=== PATIENT | male | born 1940 | race Caucasian/White ===

== ENCOUNTER 2016-12-29 12:53 | Inpatient (IN) | payer OTHER ==
[~2016-12-29] VITALS: Ht 172.7 cm; Wt 75.6 kg
--- NOTE | ~2016-12-29 | P ---
[facility] [place] [address] PROCEDURE REPORT Name: VISHAL ALMANZAR Room #: 305-P [facility] IN ..#: [id number] Admission: 12/29/16 Attend Phys: Kimberlee Staton MD Discharge: 01/06/17 Date of : 36 Report #: [id number] THIS REPORT FOR: //name// CC: Caden Miranda BRIEF HISTORY: The patient is a 76-year-old male with a known sigmoid mass. He has a history of prostate cancer and ureter epithelial cancer. PREOPERATIVE DIAGNOSIS: Rectosigmoid sigmoid mass on CT. POSTOPERATIVE DIAGNOSES: 1. Rectal mass, endoscopically appears to be extrinsic to the rectum. 2. Moderate diverticulosis coli. MEDICATIONS: Deep sedation with propofol per anesthesia. SPECIMEN: Biopsies of rectal mass. ESTIMATED BLOOD LOSS: 3 mL. PROCEDURE: Colonoscopy to cecum with biopsy. FINDINGS: Prior to propofol sedation, procedure of colonoscopy discussed with the patient as well as potential risks and its complications. He indicates he understands and desires to proceed. DESCRIPTION OF PROCEDURE: With the patient in left lateral decubitus position, digital examination was completed and a rock hard mass was felt in the distal rectal vault. Subsequently, the [employer] video colonoscope was introduced into the rectum and advanced under direct vision. I was able to visualize the scope . Unfortunately, the prep was limited and there were large pools of liquidy stool material throughout the colon with particular matter. Because of the particular matter, we could not easily suction through the scope channel. However, I was able to pass the scope and worked it around the pools of liquid into the cecum which identified by the ileocecal valve and the appendiceal orifice. No other masses were seen in the cecum. There was not a significant collection of liquid stool in the cecum, although the mucosa was covered with liquidy stool. At that point, the scope was slowly withdrawn and careful circumferential views obtained. Within the limitations of prep, I could not see any other mass lesions or bleeding lesions. There was no blood seen during this examination. As we withdrew the scope, limited views were obtained. He was noted to have moderately severe diverticular disease without endoscopic evidence of diverticulitis. The scope was withdrawn in the rectum and with the tip of [facility] [address] [place] [address] PROCEDURE REPORT Name: VISHAL ALMANZAR Room #: 305-P [facility] IN [facility].#: [id number] Admission: 12/29/16 Attend Phys: Kimberlee Staton MD Discharge: 01/06/17 Date of : 36 Report #: [id number] the scope sitting just above the anal verge, I could see a mass effect involving about half the lumen of the rectum. It had an extrinsic configuration. It appeared to be covered with normal mucosa, but there was some friability in some of the mucosa. There may be some small ulcerations, but because of the copious of liquid stool, I could not see the entire surface of the mass lesion. Multiple biopsies were obtained. Scope was withdrawn. The patient tolerated the procedure well. DISPOSITION: The patient with recent rectosigmoid mass. There was evidence of an extrinsic compression of the rectum with mass effect. This is easily palpable on digital examination. We will follow up on biopsies obtained today. <ELECTRONICALLY SIGNED> By: Connor Briones MD 01/08/17 1104 1420 0105 Connor Briones MD /nt
--- NOTE | ~2016-12-29 | HC ---
[facility] [place] [address] CONSULTATION Name: VISHAL ALMANZAR Room #: 305-P [facility] IN ..#: [id number] Admission: 12/29/16 Attend Phys: Julián Miranda MD Discharge: Date of : 38 Report #: [id number] THIS REPORT FOR: //name// CC: Landon Miranda HISTORY OF PRESENT ILLNESS: The patient is a 76-year-old white male who was admitted with history of chronic pain, increased falls at home, and chronic lower extremity weakness. He notes pain involving the left lower extremity and the left lateral thigh and upper abdomen. He has been followed by a pain clinic and apparently was given a Medrol Dosepak and then had corticosteroid injections times 3 and then indicated that he underwent outpatient surgery by Dr. Solomon Preston on his lower back as he had a pinched nerve against his spinal cord. He indicates this was done at [facility] approximately 2 weeks ago. He indicated that it did not help and that he continues to have the pain down that left leg and has been very limited as far as his mobility. There is a note of some incontinence of stool and occasional incontinence of bladder, but the nursing notes indicate that he is able to utilize the urinal. He has been admitted to the hospital now as he is continuing to have ongoing problems with functional mobility with very limited ambulation. His is also disabled and has been unable to assist him. PAST MEDICAL HISTORY: Includes atrial fibrillation, insulin-dependent diabetes mellitus, and hyperlipidemia. HABITS: Noted to be a current everyday smoker of cigars. No history of ETOH abuse. MEDICATIONS: Please see the full medication listing. ALLERGIES: No known drug allergies. SOCIAL HISTORY: Lives with his . There are many steps. His sister notes that he is barely able to ambulate with a walker short distances. is disabled and unable to assist. There is a sister and brother in the area. REVIEW OF SYSTEMS: Noted to be very hard of hearing. He does have hearing aids. No complaints of chest pain, shortness of breath, or abdominal discomfort. No focal extremity pain complaints. PHYSICAL EXAMINATION: GENERAL: A 76-year-old white male, very hard of hearing, no obvious distress. VITAL SIGNS: Last recorded temperature 98.8, pulse 67, respirations 18, and blood pressure 156/68. NEUROLOGIC: He is alert, very hard of hearing, but can follow basic 1 step commands. Facies are symmetric. He has functional range of motion of both upper extremities, strength is a grade 4-/5. DTRs are trace to 1. Upon [facility] [address] [place] [address] CONSULTATION Name: VISHAL ALMANZAR Room #: 305-P [facility] IN M.R.#: [id number] Admission: 12/29/16 Attend Phys: Julián Miranda MD Discharge: Date of : 36 Report #: [id number] examination of his lower extremities, he tends to lie with the left lower extremity externally rotated at the hip and flexed at the knee. He has functional range of motion of the right lower extremity with strength a grade 3+ to 4-/5. Left lower extremity, he has some discomfort with moving that left leg at the hip in internal rotation. He was nonpainful with my gentle range of motion. Strength is probably a grade 3+ with hip flexion, abduction, adduction as well as knee flexion, extension as well as the ankle dorsiflexion and eversion. DTRs were trace. No clonus. ASSESSMENT: A 76-year-old white male with the following problem list: 1. Chronic low back pain, left lower extremity pain with worsening gait stability, frequent falls. He was noted to have undergone surgery approximately 2 weeks ago in [facility] on his lower back for a "pinched nerve against the spinal cord." He has had prior outpatient pain management with pain injections. 2. History of frequent falls at home. 3. Generalized weakness. There is documentation of a myopathy per the admission history and physical. 4. Hypertension. 5. Insulin-dependent diabetes mellitus. 6. Atrial fibrillation. PLAN: We will take the liberty of ordering an MRI scan of his lumbosacral spine due to the fact that he had surgery approximately 2 weeks ago and notes problems with continued low back pain, left lower extremity weakness and difficulty with gait. Physical therapy and occupational therapy will be evaluating him. Discussion with the patient's sister who is considering senior living facility options, which I thinks will likely be very reasonable for this patient. We will continue to follow up for now during his hospitalization and follow up regarding the lumbar spine MRI. <ELECTRONICALLY SIGNED> By: Atilio Carrion MD 01/02/17 1539 1517 1613 Atilio Carrion MD /nt
--- NOTE | ~2016-12-29 | S ---
[facility] [place] [address] SURGICAL PATH RPT PROCEDURE Name: BOB FERRO Room #: 305-P ADM IN M.R.#: [id number] Admission: 12/29/16 Date of : 36 Discharge: Report #: [id number] Path Case #: [id number] PATHOLOGY REPORT COLLECTION DATE: 01/02/2017 RECEIVED DATE: 01/03/2017 SUBMITTING PHYS: Dr. Connor Briones OTHER PHYS: Dr. 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 (SEE COMMENT) COMMENT: The tumor cells are located predominantly within the submucosal tissue and extending into the lamina propria. No associated colonic dysplasia is identified. Properly-controlled immunohistochemical stains are performed. Block A1: PSA: tumor cells non-reactive PSAP: tumor cells non-reactive CK7: tumor cells reactive CK20: tumor cells non-reactive CDX2: tumor cells non-reactive Overall the diagnosis is involvement of the colonic mucosa and submucosa by poorly differentiated carcinoma. Clinical, radiographic and endoscopic correlation is required. The H and E stained slide is co-reviewed with Dr. Emy Navarrete. The clinical history of prostate and ureteral cancers is noted. The immunohistochemical profile argues against colorectal adenocarcinoma. The case is discussed with Dr. Connor Briones on 01/06/17 at 1:15 PM. (CLW:josafat; d/t: 01/05/2017) PATHOLOGIST: Carrie Aparicio M.D. REPORT ELECTRONICALLY SIGNED BY: Carrie Aparicio M.D. DATE/TIME: 01/06/2017 13:22 * * * * * * * * * * * * [facility] [place] [address] SURGICAL PATH RPT PROCEDURE Name: BOB FERRO Room #: 305-P ADM IN .R.#: [id number] Admission: 12/29/16 Date of : 36 Discharge: Report #: [id number] Path Case #: [id number] GROSS PATHOLOGY: Received in formalin labeled "Bob Ferro, rectal mass," are multiple (greater than 10) segments of timmons soft tissue measuring 1.0 x 0.8 x 0.2 cm in aggregate dimensions and ranging from 0.1 to 0.6 cm in maximum dimension. The specimen is submitted entirely in cassette A1. (CAA; 01/03/2017) CLINICAL HISTORY: History of prostate cancer, rectal mass INITIAL CPT CODE(S): A; 26525, 91801, 77124, 49264, 44418, 05773 Professional services performed by [facility] at [facility] [address], [place] [address] Technical services performed by [facility] at [address] [place] [address], [address] [address]. [facility] [address] [place] [address] PHONE: [phone] DIRECTOR: Bong White M.D. * * * END OF REPORT * * *
--- NOTE | ~2016-12-29 | HC ---
[facility] [place] [address] CONSULTATION Name: VISHAL ALMANZAR Room #: 305-P ADM IN M.R.#: [id number] Admission: 12/29/16 Attend Phys: Julián Miranda MD Discharge: Date of : 38 Report #: [id number] THIS REPORT FOR: //name// CC: Landon Miranda DATE OF SERVICE: 12/31/2016 HISTORY OF PRESENT ILLNESS: This is a 76-year-old male patient who was evaluated by me for ambulation difficulty of about more than 1 year duration. He indicates he started having difficulty with ambulation about more than a year ago, but has progressively become worse where he is not able to ambulate now. Initially, he was able to ambulate with a walker, now he is having difficult time there also. The weakness in the left leg is severe in the proximal muscle. He is a diabetic, but I do not know how much diabetic neuropathy he had in the past. The weakness does not fluctuate and nothing makes it better or worse, but it looks like it is a fixed weakness. He denies any tremor or any history of rigidity. He did undergo a surgery of the spine about 2 weeks ago and I do not have that record and I will try to get that record. REVIEW OF SYSTEMS: Positive for atrial fibrillation. He is a diabetic. He does have kidney problems. He has a CT scan of the abdomen and pelvis, which demonstrated tumor on the left side. From all indication, it would indicate it may be affecting the left lumbar plexus. He does have some hyponatremia. He denies any new eye, ENT, cardiac, respiratory, constitutional, dermatological, hematological, psychiatric, throat or allergic symptoms. He does have symptoms. He does have GI symptoms. He does have previous cardiac symptom and in fact was seen by cardiology and is on Eliquis. PAST MEDICAL HISTORY: Positive for this weakness, which is going on for more than a year. FAMILY HISTORY: Negative for early age stroke. SOCIAL HISTORY: He does have a history of smoking cigar. PHYSICAL EXAMINATION: The patient's examinations indicate he is alert, responsive and his speech, concentration, fund of knowledge and memory is at his baseline. He is oriented. His cranial nerve examination 2-12 is unremarkable. His strength, sensation, reflexes and tone in upper extremities unremarkable. He is profoundly weak in the left lower extremity. Most of the weakness is proximal, but weakness is present throughout the leg. On the right leg, he does not appear to have significant weakness. His reflexes are diminished on both sides. I think he can tell the position sense and tone is symmetrical. His dcvqzk-mx-tans is normal. There is no meningeal sign. There is no carotid bruit in this patient. [address] [address] CONSULTATION Name: VISHAL ALMANZAR Samantha Room #: 305-P [facility] IN M.R.#: [id number] Admission: 12/29/16 Attend Phys: Julián Miranda MD Discharge: Date of : 36 Report #: [id number] He is a very well developed individual who does not have any dysmorphic features of eyes, ears and face. He is hard of hearing. His vision looks adequate. His heart is somewhat irregular, but that is his baseline. His heart sounds looks unremarkable. He does not have much respiratory difficulty and there is no rhonchi on either side. His pulses are somewhat difficult to feel. He has no edema, cyanosis or jaundice. His vital signs indicate a blood pressure 160/69, respirations 18, pulse is 59, and temperature 98.5. LABORATORY DATA: His white count was 12.9, his sodium is 135, the last PTT was 49.8, but that were done last year. His CT abdomen report was reviewed. His MRI was reviewed and it showed old stroke, I am not sure about the new stroke. His lumbar spine was reviewed. IMPRESSION: This is a complicated case and the following diagnoses were considered. 1. He probably has a lumbar plexus involvement with a tumor demonstrated on CT abdomen and pelvis. This is tumor that will cause involvement of the lumbar plexus. 2. He is predisposed for diabetic amyotrophy. That may be the contributing factor. 3. I do not know what spine surgery he had and how much spine was compressed when the surgery was done. We will try to get the record from [facility]. RECOMMENDATIONS: I discussed the case with the nurses. I do not think he knows that the CT abdomen and pelvic findings. I will discuss that with you. I think that portion is the one, which need to be addressed further. He does need physical and occupational therapy. For diabetic amyotrophy, treatment is mainly physical therapy, but there is strong chance that if it returner to be tumor, his lumbar plexus is involved with this tumor. Whatever contribution he has from the spine has probably already been addressed at [facility], but we will try to get the record tomorrow. I will discuss this patient with you tomorrow and await your discussion with him further. I had discussed the situation with him before reviewing the CT abdomen and I did not go back to discuss the situation with them because as I understand he does not know the CT finding and I will let you discuss that with him tomorrow. Thank you very much for this referral. <ELECTRONICALLY SIGNED> By: Nick Cameron MD 01/02/17 1926 25 22 Nick Cameron MD /nt
--- NOTE | ~2016-12-29 | 2DMMODE ---
[address] [address] 2 D/M-MODE ECHOCARDIOGRAM Name: VISHAL ALMANZAR Room #: 305-P ADM IN .R.#: [id number] Admission: 12/29/16 Attend Phys: Good Gomes Discharge: Date of : 36 Date of Service: 01/01/17 1653 Report #: [id number] THIS REPORT FOR: //name// APPROVED REPORT EXAM: Comprehensive 2D Echocardiogram Patient Location: Bedside/Room 305 Blood Pressure: 160/68 mmHg HR: 79 bpm Rhythm: Irregular Other Information Study Quality: Good Indications CVA/TIA Limited echo for subacute infarct. (Complete echo done 11/2016) Hx: CAD, Afib, DM, HTN Echo Enhancing Agent Indication: Rule out Shunt Agent/Amount Used: Agitated Saline cc Left Ventricle The left ventricle is normal size. Left ventricular systolic function is normal. LVEF is 55-60%.. Right Ventricle The right ventricle is normal size. Atria Left atrium is mildly dilated. Injection of bubbles documented no interatrial shunt. The right atrium size is normal. Aortic Valve Aortic valve is calcified. Mitral Valve Mitral valve leaflets are thickened. Tricuspid Valve The tricuspid valve is normal in structure. [address] [address] 2 D/M-MODE ECHOCARDIOGRAM Name: VISHAL ALMANZAR Samantha Room #: 305-P ADM IN M.R.#: [id number] Admission: 12/29/16 Attend Phys: Good Gomes Discharge: Date of : 36 Date of Service: 01/01/171652 Report #: [id number] Great Vessels IVC is normal in size and collapses <50% with inspiration. Pericardium There is no pericardial effusion. <Conclusion> Left ventricular systolic function is normal. Left atrium is mildly dilated. Injection of bubbles documented no interatrial shunt. <ELECTRONICALLY SIGNED> By: Atilio Rizzo MD, FAC 01/01/171652 52 52 Atilio Rizzo MD, FACC /INF
--- NOTE | ~2016-12-29 | HC ---
[facility] [place] [address] CONSULTATION Name: VISHAL ALMANZAR Room #: 305-P ADM IN M.R.#: [id number] Admission: 12/29/16 Attend Phys: Kimberlee Staton MD Discharge: Date of : 38 Report #: [id number] THIS REPORT FOR: //name// CC: Landon Rizzo MD [facility] Dr. Steven Adan MD REASON FOR CONSULTATION: Possible cancer. HISTORY OF PRESENT ILLNESS: The patient is a very pleasant, but slightly hard of hearing 76-year-old gentleman, who has about one year history of pain sort of in his left leg and left buttock and maybe about 6 months of numbness in the buttock, left leg and has been having worsening trouble with pain and numbness and falling. Here in the hospital, he was found to have imaging that showed mild right-sided hydronephrosis and hydroureter and then a CAT scan done on 12/31/2014 showed soft tissue thickening over the left side of the pelvis with thickening along the anterior left distal sigmoid colon suggesting possible colon primary that the left side of the pelvis with tumor wrapping around the distal right ureter where it inserts into the bladder. There is additional tumor extending down into sacrum. There was no local bony destruction and no widespread metastatic involvement identified. There is a tiny nodule in the right lung base, which appeared unchanged. Of interest as I noticed, the adrenal glands have some slight thickening that is present and unchanged since 2013. The patient also had an MRI of the thoracic spine that revealed some chronic depression deformities, but nothing that looks of metastatic involvement. The patient underwent a colonoscopy earlier today and was described as finding a rock hard rectal mass, which appears extrinsic to the rectum, with biopsies obtained. The dictation is not available at this time. Dr. Cameron thought that he had findings suggestive of left leg weakness, secondary to tumor involvement of the sacral plexus, if I understand correctly. Blood tests here on this admission are notable for a BUN of 13, creatinine of 1.1. Total bilirubin normal, AST normal. Total protein 6.3, albumin at 2.4. Iron low at 23, TIBC low at 150, percent saturation of iron 15, which is low. Coags not done this admit. White count 11.6, hemoglobin 9.9, MCV of 95.7, platelets of 201. Differential nonacute. The patient reports that PSA had been unremarkable. Also, note that GI note that last colonoscopy was supposedly in 2014 at [facility] with Dr. Anton Wilkins, revealed one adenomatous polyp in the transverse colon and diverticular disease in the distal sigmoid. His last EGD was in [address] Aldridge for dysphagia, [place] [address] CONSULTATION Name: VISHAL ALMANZAR Room #: 305-P ADM IN M.R.#: [id number] Admission: 12/29/16 Attend Phys: Kimberlee Staton MD Discharge: Date of : 38 Report #: [id number] reveal any specific abnormalities. PAST MEDICAL HISTORY: History of atrial fibrillation, insulin-dependent diabetes, recently. Also, history of a kidney cancer resected by Dr. Moore in 2013. I believe, he had seen Dr. Cabezas about that time though I am not sure how long it has been since he saw him. Also, he has a history of prostate cancer, resected by Dr. Humble Emmanuel, at [facility]. The patient reports his PSA had been unremarkable. REVIEW OF SYSTEMS: The patient says that he may be lost about 20 pounds in the last 6 months to a year. No fevers, no chills. Does have very hard of hearing. Mentation is normal according to him. FAMILY HISTORY: Father at age 70 with metastatic prostate cancer. Mother at age 90. Two brothers, one sister; no cancers there. 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 He has 5 children some of them, many of them were in school, either stayed in football or stayed in basketball. I think he has family locally. He lives with his at home. She had fallen about 6 weeks ago, I believe and broke her leg below the knee and according to him. ALLERGIES: No known allergies. MEDICATIONS: At this time, in the hospital currently include iron 150 mg daily p.o., insulin at night 24 units, tamsulosin 0.4 daily, bupropion 300 mg XL daily, citalopram 40 mg daily, diltiazem CD 180 mg daily, atorvastatin calcium 10 mg daily, insulin on a sliding scale, sotalol 80 mg b.i.d., apixaban 2.5 mg b.i.d., hydrocodone p.r.n., Zofran p.r.n., morphine p.r.n. PHYSICAL EXAMINATION: GENERAL: The patient appears of stated age. VITAL SIGNS: Current height is 5 feet 8 inches, which is 172.7 cm; weight is 166.7 pounds or 75.6 kg. Blood pressure is 183/74, O2 sat 94%, respirations 17, pulse 68, afebrile. MOOD: The patient is alert and very pleasant. NEUROLOGIC: He is having some numbness by his description on his left leg, buttock. Face is symmetric. He is moving his arm well. Mentating well. Speech pattern is normal. LYMPHATICS: No enlarged lymph nodes in the supraclavicular, cervical, axillary or inguinal region. ABDOMEN: Soft, without masses, nontender, no masses. HEART: Regular rate. [facility] [address] [place] [address] CONSULTATION Name: VISHAL ALMANZAR Room #: 305-P ADM IN M.R.#: [id number] Admission: 12/29/16 Attend Phys: Kimberlee Staton MD Discharge: Date of : 38 Report #: [id number] DISCUSSION: I discussed with the patient that we were very worried that he may have a pelvic mass, unclear, at this time whether this may be a primary rectal cancer or recurrence of his kidney cancer or perhaps another disease. Also mentioned the biopsies, I think, we may need to repeat to find out for sure what we are dealing with, most likely we would consider radiation therapy given his advanced age and poor performance status. ASSESSMENT AND PLAN: 1. Left pelvic mass causing symptoms for the past year. We will await biopsy results and develop a plan. 2. Distant history of prostate cancer with normal PSA not likely recurrent. 3. History of kidney cancer in 2014, last records from Dr. Moore be obtained. 4. Deconditioning and weakness. We will defer to others about rehabilitation and strengthening exercises. 5. Atrial fibrillation. Continue anticoagulants and multiple meds. 6. Diabetes continue insulin. 7. Hyperlipidemia. Continue atorvastatin. 8. We will follow with you. <ELECTRONICALLY SIGNED> By: Javier Lacy MD 01/05/17 0916 [id number] Javier Lacy MD /nt
[~2016-12-29 12:53] MED LIST: ACETAMINOPHEN650 M5 PO; ADULT LOW DOSE81 MG; ALTACE10 M1 PO; AMARYL4 MG PO; AMLODIPINE BESY10 MG PO; ASPIR 8181 MG PO; ASPIRIN BUFFER325 MG PO; CARDIZEM CD 18180 M3 PO; CARVEDILOL25 MG PO; CHLORTHALIDONE25 MG PO; CIPRO500 MG PO; GLUCOPHAGE1000 MG PO; GLUCOPHAGE500 MG; HUMALOG100 UNIT/1 SQ; HUMALOG100 UNIT/1 SUBQ; HYDROCODON-ACE1 EAC7 PO; KEFLEX500 MG PO; LANTUS SC; LANTUS SUBQ; LANTUS100 UNIT/M SUBQ; LEVEMIR SUBQ; LIPITOR 10 MG10 M1 PO; LIPITOR10 MG PO; METFORMIN 500500 MG PO; METOPROLOL SUCC50 MG PO; NORVASC5 MG PO; PAROXETINE HCL40 MG PO; PLAVIX 75 MG TA75 MG PO; PRADAXA150 MG PO; PRINIVIL20 MG PO; SORINE 80 MG TA80 M1 PO; SYMBICORT80 MCG/4.1 INH; TOPROL XL50 MG PO; VIAGRA50 MG PO
[2016-12-29 12:54] VITALS: BP 134/77
[2016-12-29] MEDS ORDERED: ELIQUIS2.5 MG PO (12:57)
[2016-12-29] MEDS ORDERED: WELLBUTRIN XL300 MG PO (12:57)
[2016-12-29] MEDS ORDERED: NOVOLOG100 UNIT/M SUBQ (12:58)
[2016-12-29] MEDS ORDERED: TRESIBA FL100 UNIT/1 SQ (12:58)
[2016-12-29] MEDS ORDERED: PRINIVIL20 MG PO (12:58)
[2016-12-29] MEDS ORDERED: LEXAPRO20 MG PO (12:58)
[2016-12-29] MEDS ORDERED: HYDROCODONE-AP1 EAC6 PO (12:59)
[2016-12-29 13:17] LABS: HEMATOCRIT 37.4 % (42.0-52.0); HEMOGLOBIN 12.7 gm/dL (14.0-18.0); MCH 32.6 pg (26.0-34.0); MCV 95.8 fL (80.0-100.0); PLATELET COUNT 260 thou/uL (150-400); RDW 14.8 % (10.5-14.5)
[2016-12-29 13:18] LABS: MANUAL DIFF YES
[2016-12-29 13:24] LABS: CREATININE 1.6 mg/dL (0.6-1.3); POTASSIUM 3.9 mmol/L (3.5-5.1)
[2016-12-29 13:29] LABS: ALBUMIN 2.4 g/dL (3.4-5.0); TOTAL BILIRUBIN 0.4 mg/dL (<0.1-1.0); TOTAL PROTEIN 6.3 g/dL (6.4-8.2)
[2016-12-29 13:34] LABS: ABSOLUTE NEUTROPHILS 12.6 thou/uL (1.4-8.2); TOTAL CELL COUNT 100
[2016-12-29 19:33] VITALS: BP 176/64
[2016-12-30 03:04] LABS: URINE BILIRUBIN NEGATIVE (Negative); URINE BLOOD 3+ (Negative); URINE COLOR YELLOW; URINE GLUCOSE-RANDOM* 2+ (Negative); URINE KETONES TRACE (Negative); URINE NITRITE NEGATIVE (Negative); URINE PROTEIN (DIPSTICK) TRACE (Negative)
[2016-12-30 03:19] LABS: BACTERIA >30 Many /HPF (None Seen); CASTS None Seen /LPF (None Seen); SQUAMOUS None Seen /LPF (0-3); URINE RBC 3-10 Few /HPF (0-2); URINE WBC >25 Many /HPF (0-5)
[2016-12-30 03:20] LABS: CRYSTALS None Seen /LPF (None Seen)
[2016-12-30 04:09] VITALS: BP 145/82
[2016-12-30 08:04] VITALS: BP 156/68
[2016-12-30 16:20] VITALS: BP 149/64
[2016-12-30 18:59] LABS: HEMATOCRIT 35.8 % (42.0-52.0); HEMOGLOBIN 11.9 gm/dL (14.0-18.0); MCH 32.5 pg (26.0-34.0); MCHC 33.3 g/dL (28.0-37.0); MCV 97.5 fL (80.0-100.0); PLATELET COUNT 226 thou/uL (150-400); RBC 3.67 mil/uL (4.50-6.00); WBC 12.9 thou/uL (4.0-11.0)
[2016-12-30 19:00] LABS: MANUAL DIFF YES
[2016-12-30 19:05] LABS: CALCIUM 8.4 mg/dL (8.5-10.1); CREATININE 1.7 mg/dL (0.6-1.3); POTASSIUM 3.8 mmol/L (3.5-5.1)
[2016-12-30 19:28] LABS: ABSOLUTE NEUTROPHILS 10.2 thou/uL (1.4-8.2); TOTAL CELL COUNT 100
[2016-12-30 19:29] LABS: ANISOCYTOSIS SLIGHT
[2016-12-30 20:10] VITALS: BP 149/64
[2016-12-31 03:50] VITALS: BP 131/55
[2016-12-31 07:34] VITALS: BP 169/66
[2016-12-31 16:56] VITALS: BP 160/69
[2016-12-31 19:35] VITALS: BP 156/68
[2017-01-01 03:50] VITALS: BP 168/74
[2017-01-01 06:20] LABS: HEMATOCRIT 29.8 % (42.0-52.0); MCH 32.6 pg (26.0-34.0); MCHC 33.4 g/dL (28.0-37.0); MCV 97.6 fL (80.0-100.0); RBC 3.05 mil/uL (4.50-6.00); WBC 11.3 thou/uL (4.0-11.0)
[2017-01-01 06:21] LABS: HEMOGLOBIN 9.9 gm/dL (14.0-18.0)
[2017-01-01 06:34] LABS: CALCIUM 8.3 mg/dL (8.5-10.1); CREATININE 1.3 mg/dL (0.6-1.3); POTASSIUM 4.2 mmol/L (3.5-5.1)
[2017-01-01 08:00] VITALS: BP 160/68
[2017-01-01 09:41] LABS: % SATURATION 15 % (20-39); IRON 23 ug/dL (65-175); TIBC 150 ug/dL (250-450); UIBC 127 ug/dL
[2017-01-01 16:00] VITALS: BP 140/80
[2017-01-01 19:02] VITALS: BP 157/71
[2017-01-02 03:20] VITALS: BP 158/69
[2017-01-02 04:56] LABS: HEMOGLOBIN 9.9 gm/dL (14.0-18.0); MCH 32.8 pg (26.0-34.0); MCHC 34.3 g/dL (28.0-37.0); MCV 95.7 fL (80.0-100.0); RBC 3.03 mil/uL (4.50-6.00); RDW 14.8 % (10.5-14.5); WBC 11.6 thou/uL (4.0-11.0)
[2017-01-02 05:09] LABS: ANION GAP 9 mmol/L (7-16); BUN 16 mg/dL (7-18); CALCIUM 8.2 mg/dL (8.5-10.1); CHLORIDE 103 mmol/L (98-107); CHOLESTEROL 98 mg/dL (<200); CO2 23 mmol/L (21-32); CREATININE 1.1 mg/dL (0.6-1.3); HDL CHOLESTEROL 32 mg/dL (>40); LDL CHOLESTEROL 47 mg/dL (<100); SODIUM 135 mmol/L (136-145); TC:HDL 3.1 Ratio (Not establshd); TRIGLYCERIDE 98 mg/dL (<150); VLDL 20 mg/dL (<40)
[2017-01-02 05:12] LABS: POTASSIUM 3.1 mmol/L (3.5-5.1); SERUM ASSESSMENT Clear
[2017-01-02 05:17] LABS: GLUCOSE 37 mg/dL (70-99)
[2017-01-02 07:59] VITALS: BP 177/69
[2017-01-02 15:13] VITALS: BP 183/74
[2017-01-02 20:00] VITALS: BP 162/66
[2017-01-03 04:00] VITALS: BP 164/70
[2017-01-03 08:30] VITALS: BP 146/71
[2017-01-03 20:15] VITALS: BP 130/69
[2017-01-04 05:25] VITALS: BP 152/70
[2017-01-04 07:10] VITALS: BP 143/71
[2017-01-04 15:40] VITALS: BP 146/67
[2017-01-04 20:00] VITALS: BP 151/72
[2017-01-05 04:00] VITALS: BP 149/68
[2017-01-05 07:42] VITALS: BP 153/96
[2017-01-05] MEDS ORDERED: FLOMAX0.4 MG PO (11:40)
[2017-01-05] MEDS ORDERED: FERREX 150 PLU1 EAC1 PO (11:40)
[2017-01-05 14:43] VITALS: BP 138/68
[2017-01-05 19:04] VITALS: BP 148/73
[2017-01-06 03:14] VITALS: BP 160/73
[2017-01-06 08:00] VITALS: BP 157/76
[2017-01-06 16:00] VITALS: BP 127/61
== END 2017-01-06 18:02 | DRG 374 ==
LOC: ER 12:53 → EROBS 13:58 → 3N 13:58
PROVIDERS: Emergency Medicine; Family Medicine
PROC: 0DBP8ZX Excision of Rectum, Via Natural or Artificial Opening Endoscopic, Diagnostic (ICD-10-PCS; principal; 2017-01-02)
DX: C18.9 Malignant neoplasm of colon, unspecified (principal); E43 Unspecified severe protein-calorie malnutrition; N17.9 Acute kidney failure, unspecified; N13.30 Unspecified hydronephrosis; N39.0 Urinary tract infection, site not specified; E87.1 Hypo-osmolality and hyponatremia; K57.30 Diverticulosis of large intestine without perforation or abscess without bleeding; G72.9 Myopathy, unspecified; D72.829 Elevated white blood cell count, unspecified; I25.10 Atherosclerotic heart disease of native coronary artery without angina pectoris; D50.9 Iron deficiency anemia, unspecified; E11.649 Type 2 diabetes mellitus with hypoglycemia without coma; M47.9 Spondylosis, unspecified; E87.6 Hypokalemia; R33.9 Retention of urine, unspecified; M25.552 Pain in left hip; I10 Essential (primary) hypertension; I48.91 Unspecified atrial fibrillation; E11.44 Type 2 diabetes mellitus with diabetic amyotrophy; E78.5 Hyperlipidemia, unspecified; G89.29 Other chronic pain; M54.5 Low back pain; R26.81 Unsteadiness on feet; R29.6 Repeated falls; F17.210 Nicotine dependence, cigarettes, uncomplicated; Z85.46 Personal history of malignant neoplasm of prostate; Z90.5 Acquired absence of kidney; Z80.42 Family history of malignant neoplasm of prostate; Z90.79 Acquired absence of other genital organ(s); Z95.5 Presence of coronary angioplasty implant and graft; Z79.01 Long term (current) use of anticoagulants; Z79.4 Long term (current) use of insulin; Z79.899 Other long term (current) drug therapy; Z68.25 Body mass index [BMI] 25.0-25.9, adult
CPT/HCPCS: 10094; 62110; 62900; 70005

== ENCOUNTER 2017-01-12 00:51 | Inpatient (IN) | payer OTHER ==
[~2017-01-12] VITALS: Ht 182.9 cm; Wt 84.8 kg
--- NOTE | ~2017-01-12 | EKG ---
[address] [address] ELECTROCARDIOGRAM REPORT Name: VISHAL ALMANZAR Room #: 236-P ADM IN M.R.#: [id number] Admission: 01/12/17 Attend Phys: Fam Oliveira DO Discharge: Date of : 38 Report #: [id number] THIS REPORT FOR: //name// [facility] Test Date: 2017-01-13 Test Time: 09:22:52 Pat Name: VISHAL ALMANZAR Department: Room: 236 Gender: M [employer] Tool: laura : 1940 Requested By: Fam Oliveira Order Number: [id number] MD: Reginald Bhatti Measurements Intervals [place] Rate: 123 P: [place]: QRS: 16 QRSD: 71 T: 29 QT: 335 QTc: 480 Interpretive Statements Atrial fibrillation Borderline ST depression, diffuse leads Prolonged QT interval Compared to ECG 01/12/2017 01:31:54 Atrial fibrillation is now present Electronically Signed On 01-15-2017 7:34:23 CDT by Reginald Bhatti [email or web address] <ELECTRONICALLY SIGNED> By: Reginald Bhatti MD, [facility] 01/15/17 0734 1 1 Reginald Bhatti MD, [facility] /EPI
--- NOTE | ~2017-01-12 | HC ---
[facility] [place] [address] CONSULTATION Name: VISHAL ALMANZAR Room #: 236-P [facility] IN M.R.#: [id number] Admission: 01/12/17 Attend Phys: Fam Oliveira DO Discharge: Date of : 38 Report #: [id number] THIS REPORT FOR: //name// CC: DUSTIN Rizzo MD [facility] Fam CROOKS REASON FOR CONSULTATION: Recurrent urothelial cancer. HISTORY OF PRESENT ILLNESS: This is a 76-year-old gentleman who I met last visit, who had come in and had an extrinsic rectal mass. 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 The patient also has a history of prostate cancer and radiation therapy with Dr. Dustin Lindsey in the past. We had hoped that the patient could recover as an outpatient and go see Dr. Lindsey and to see if radiation therapy could be given. The patient has about a 6- to 12-month history of progressive pain that was thought to be due to this pelvic tumor that can now be seen. I talked to the patient and his son today, Deep, about having the images cloud over to Dr. Dustin Lindsey. I have already left a message on this nurse's voice mail about having him review these and give me a call me if he might be able to undergo radiation therapy. I did discuss with the patient and the son that this would be palliative in nature and not curative as this probably represents stage IV cancer. I also told there were others modalities available, such as chemotherapy and immunotherapy, but I am very worried about his ability to tolerate it at this time and also the efficacy rate. Not that we cannot do it, but the radiation therapy is our first choice. We also described getting him out of the hospital to recover from the pneumonia would be very important. At this time, the patient is in the hospital bed receiving IV fluids and antibiotics. PAST MEDICAL HISTORY: Past history is notable for the recurrent ureteral cancer; history of prostate cancer in the past, treated possibly by surgery, but also sounds like radiation therapy and that was by Dr. Humble Emmanuel at [facility]. His PSA has been unremarkable. Also, the history of ureteral cancer, status post, I think it was a T3 N0 lesion if I recall from office review. He also has a history of atrial fibrillation, diabetes mellitus, protein-calorie malnutrition, recent pneumonia and also anemia. FAMILY HISTORY: Father at age 70 of metastatic prostate cancer. Mother at age 90. He has 2 brothers and 1 sister, no cancers. 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 He lives with his at home and I had talked to him recently. She had fallen and broken her leg several weeks ago. ALLERGIES: None known. MEDICATIONS: At this time in the hospital currently include, famotidine 20 b.i.d., guaifenesin one tab b.i.d., vancomycin 1 gram q. 12, insulin on a sliding scale, fentanyl p.r.n., Tylenol p.r.n. and Zofran p.r.n. PHYSICAL EXAMINATION: GENERAL: The patient appears his stated age. He is very hard of hearing. VITAL SIGNS: Height is 6 feet. Weight is 182 pounds. Blood pressure is 157/81, O2 sat 98%, respirations 18, pulse 85 and temperature 98.5. MOOD: He is pleasant and alert, though hard of hearing. NEUROLOGIC: He is moving all extremities. He is looking around well. We did not do a leg raise. He appears to be breathing comfortably. SKIN: His skin tone and color appear to be good. He appears to have good blood flow as his skin is nice and pink. ASSESSMENT AND PLAN: 1. 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 We will cloud images to Dr. Dustin Lindsey and ask him to call me to see if radiation therapy might play a role here; it probably will. If not, we would like the patient to improve. Could consider chemotherapy and/or immunotherapy. At this time, I think the patient is too weak and needs to recover from his pneumonia, though that could be considered. 2. Pneumonia. Continue antibiotics. 3. Pain. Continue opiates and Neurontin or other meds as needed. 4. Atrial fibrillation. Meds for rate control. 5. Weakness. Defer to rehab services. We will follow with you. <ELECTRONICALLY SIGNED> By: Javier Lacy MD 01/14/17 0737 0837 1215 Javier Lacy MD /nt
--- NOTE | ~2017-01-12 | 2DMMODE ---
[address] [address] 2 D/M-MODE ECHOCARDIOGRAM Name: VISHAL ALMANZAR Room #: 236-P [facility] IN ..#: [id number] Admission: 01/12/17 Attend Phys: Fam Oliveira, Discharge: Date of : 36 Date of Service: 01/15/17 0828 Report #: [id number] THIS REPORT FOR: //name// APPROVED REPORT Study performed: 01/14/2017 09:32:19 EXAM: Comprehensive 2D, Doppler, and color-flow Echocardiogram Patient Location: Bedside Blood Pressure: 148/58 mmHg HR: 65 bpm Other Information Study Quality: Adequate Indications Congestive Heart Failure Tricuspid Valve TR Peak Shyam.: 3.41 m/s TR Peak Gr.: 46.50 mmHg Left Ventricle The left ventricle is normal size. There is borderline hypokinesis in the anteroseptal wall. Mild concentric left ventricular hypertrophy. Left ventricular systolic function is low normal. LVEF is 50% Diastolic function was not assessed. Right Ventricle The right ventricle is normal size. The right ventricular systolic function is normal. Atria Left atrium appears dilated. Right atrium is borderline dilated. Aortic Valve Aortic valve is trileaflet. Aortic valve is calcified. No aortic regurgitation is present. There is no aortic valvular stenosis. Mitral Valve [address] [place] [address] 2 D/M-MODE ECHOCARDIOGRAM Name: VISHAL ALMANZAR Room #: 236-P ADM IN M.R.#: [id number] Admission: 01/12/17 Attend Phys: Fam Oliveira, Discharge: Date of : 38 Date of Service: 01/15/178[address] Report #: [id number] The mitral valve is normal in structure. Mild mitral regurgitation. Tricuspid Valve The tricuspid valve is normal in structure. There is trace tricuspid regurgitation. The right atrial pressure is estimated at mmHg. There is mild-moderate pulmonary hypertension. The estimated PAP was 47 mmHg plus the right atrial pressure. Pulmonic Valve The pulmonary valve is normal in structure. There is no pulmonic valvular regurgitation. Great Vessels The aortic root is normal in size. IVC is not well visualized. Pericardium There is no pericardial effusion. <Conclusion> Left ventricular systolic function is low normal. LVEF is 50% There is borderline hypokinesis in the anteroseptal wall. Left atrium appears dilated. There is no aortic valvular stenosis. No aortic regurgitation is present. Mild mitral regurgitation. <ELECTRONICALLY SIGNED> By: Osman Dunbar MD, [facility] 01/15/17827 7 0828 Osman Dunbar MD, FACC /INF
--- NOTE | ~2017-01-12 | HC ---
[facility] [place] [address] CONSULTATION Name: BOB ALMANZAR Room #: 202-P ADM IN M.R.#: [id number] Admission: 01/12/17 Attend Phys: Chris Carranza MD Discharge: Date of : 38 Report #: [id number] THIS REPORT FOR: //name// CC: Fam Lacy MD Radiation oncology consultation. 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 HISTORY OF PRESENT ILLNESS: The patient was diagnosed with prostate cancer approximately 10 years ago. He is very fuzzy on the details, but tells me today he underwent prostatectomy and then underwent external beam radiation, he believes 6 weeks later and states that he thinks it was at my clinic at the [facility]. 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 He has been JARRELL with surveillance CT scans in 11/2015 still being negative. He was more recently admitted to [facility] on 12/29/2016 through 01/05/2017 for left hip pain, fall, general weakness and inability to ambulate. Workup included MRI brain, MRI spine and CT abdomen and pelvis, which showed soft tissue thickening filling the left pelvis extending down to the sacrum and involving the distal right ureter into the bladder leading to right hydronephrosis/hydroureter and sigmoid colon without evidence for osseous or other metastases. Colonoscopy 01/02/2017 found what appeared to be an extrinsic mass at the rectum. Biopsies were taken of this mass and returned consistent with poorly differentiated carcinoma more consistent with a than a GI primary. He is now readmitted to [facility] with hypoglycemia and aspiration pneumonia. I have been asked to see him to discuss possibility of palliative RT to the pelvis. Today, the patient states that he has had left hip pain for the past year that has been slowly progressive. It has gotten bad enough that he states that he is unable to walk. He states that he feels he has weakness in the left leg as well and it is a struggle to lift it. He states as of late, he has been more constipated and has had more difficulty having a bowel movement. He is a poor historian and has a lot of difficulty remembering more remote history. PAST MEDICAL HISTORY: 1. Prostate cancer as detailed above. I will need to obtain records for the specifics on his radiation. 2. 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 MEDICATIONS: I reviewed the medications on the inpatient chart. They include atorvastatin, diltiazem, sotalol, Lexapro, chlorthalidone, bupropion, apixaban, lisinopril, insulin, and hydrocodone/acetaminophen. ALLERGIES: I reviewed his history and he has no known drug allergies. SOCIAL HISTORY: The [place] lives in [place], [place]. He states that he is living at home with his but says that he is likely going to be going to a intermediate facility. FAMILY HISTORY: I reviewed the family history and it is noncontributory. REVIEW OF SYSTEMS: I did not go through review of systems with him today. PHYSICAL EXAMINATION: VITAL SIGNS: Pulse is 91-101, blood pressure is 158/86, respirations are 20-30, satting 94% on supplemental oxygen through a mask. Temperature is 97.7 and 98.5 degrees. GENERAL: Pleasant male. Alert and oriented x 3, lying comfortably in the hospital bed. NEUROLOGIC: He does have some confusion on discussing his past medical history. The remainder of the exam was deferred today. IMAGING: CT abdomen and pelvis without contrast 12/31/2016, I reviewed the images and report for this study, which showed a soft tissue mass on the left side of the pelvis, which involves the rectum and it does wrap around to the distal right ureter into the bladder with additional tumor extending down into the sacrum. The CT also shows a significant hydroureter/hydronephrosis on the right. I reviewed an MRI thoracic spine without contrast 01/02/2017. I reviewed the images and the report for the scan, it shows multiple chronic compression deformities but does not show anything to suggest osseous metastasis. Pathology 01/02/2017: Specimen received rectal mass. FINAL DIAGNOSES: Colonic mucosa and submucosa with involvement by poorly differentiated carcinoma. COMMENT: The tumor cells are located predominantly within the submucosal tissue and extending into the lamina propria. No associated colonic dysplasia was identified. Overall, the diagnosis is involvement of the colonic mucosa and submucosa by poorly differentiated carcinoma. The immunohistochemical profile [facility] [address] [place] [address] CONSULTATION Name: BOB ALMANZAR Room #: 202-P [facility] IN ..#: [id number] Admission: 01/12/17 Attend Phys: Chris Carranza MD Discharge: Date of : 38 Report #: [id number] argues against colorectal adenocarcinoma. ASSESSMENT: Pelvic recurrence of a ureteral carcinoma, stage IV. DISCUSSION AND RECOMMENDATIONS: I have been asked to render an opinion regarding the benefit of palliative radiation to the left mass. He has had prior radiation it appears over the past 5-10 years. I will work to obtain those records to review, but more than likely, he received 70 hannah with a full dose in the area where the tumor is currently involving. Nevertheless, given the interval between his prior radiation and palliative dosing, I feel that we can safely deliver palliative radiation. I also think that this could provide him some significant benefit in improving his left hip pain, his left leg weakness and also improving his bowel functions. However, he has more acute issues including his pneumonia requiring supplemental oxygen. He understands that he will need to recover from this and be sent to an outpatient before I would consider doing any radiation. As such, I will await his discharge and I will follow up with him accordingly. There is no further workup that I recommend at this time. I would like to thank Dr. Javier Lacy for referring the patient. I appreciate the opportunity to participate in his care. <ELECTRONICALLY SIGNED> By: Bob Taylor MD 01/22/17 1501 [id number] [id number] Bob Taylor MD /momo
--- NOTE | ~2017-01-12 | HC ---
[facility] [place] [address] CONSULTATION Name: VISHAL ALMANZAR Room #: 202-P ADM IN M.R.#: [id number] Admission: 01/12/17 Attend Phys: Fam Oliveira DO Discharge: Date of : 38 Report #: [id number] THIS REPORT FOR: //name// CC: Fam Neal MD DATE OF SERVICE: 01/13/2017 REFERRING PROVIDER: Alfonzo Neal MD REASON FOR CONSULTATION: Hypoxemic respiratory failure. CHIEF COMPLAINT: Worsening hypoxemia and altered mental status. HISTORY OF PRESENT ILLNESS: Our group was asked to see the patient this morning in consultation while hospitalized at [facility], seen in his remote critical care telemetry in room 312. He is a difficult historian given some difficulty hearing, perhaps some underlying mild dementia. This is a 76-year-old male recently hospitalized with generalized weakness. He states he had difficulty walking and ambulating apparently had an injury what sounds like a broken hip or leg and he has had limited mobility at home. He has a known history of recurrence of urothelial cancer on his most recent admission. The patient was found poorly responsive at home, brought to the Emergency Department where he was noted to be hypoglycemic. There was some concern in transfer for aspiration because of gurgling noises heard. The patient was initially seen in the Emergency Department. Chest x-ray revealed more right-sided infiltrates and is currently on vancomycin in the Emergency Department, received a single dose of ciprofloxacin and remains on vancomycin and was noted to have increasing oxygen requirements overnight. Denies any significant cough or sputum production. No fevers, chills or sweats. No past pulmonary history. ALLERGIES: Include none known. PAST MEDICAL HISTORY: 1. History of recurrent urothelial cancer. 2. History of coronary artery disease. 3. Hypertension. 4. History of prostate cancer status post radical prostatectomy. 5. Diabetes mellitus type 2. 6. Hypertension. SOCIAL HISTORY: The patient had been an active smoker, no alcohol consumption. FAMILY HISTORY: Limited due to his current status. [facility] [address] [place] [address] CONSULTATION Name: VISHAL ALMANZAR Samantha Room #: 202-P [facility] IN M.R.#: [id number] Admission: 01/12/17 Attend Phys: Fam Oliveira DO Discharge: Date of : 38 Report #: [id number] REVIEW OF SYSTEMS: CONSTITUTIONAL: Denies any fevers, chills or sweats. No change in weight or appetite. ENT: No upper respiratory congestion, rhinorrhea or dysphagia. CARDIOVASCULAR: Known history of coronary artery disease. Denies any chest pain or palpitations. Denies any known history of atrial fibrillation. GASTROINTESTINAL: No nausea, vomiting, diarrhea, constipation or abdominal pain. GENITOURINARY: As described in HPI. INTEGUMENT: Denies any rash. MUSCULOSKELETAL: Known lower extremity weakness. PHYSICAL EXAMINATION: VITAL SIGNS: Afebrile, pulse 60s, respiratory rate 20, blood pressure 160/92, oxygen saturation 97%. The patient is on 50% facemask as well as high flow nasal cannula. GENERAL: This is an elderly male, does not appear in any distress, hard of hearing. ENT: Clear oropharynx. No erythema. NECK: Supple, no lymphadenopathy. LUNGS: Diffuse inspiratory crackles, no wheezes. CARDIOVASCULAR: Heart is irregular and tachycardic. No murmurs noted. ABDOMEN: Soft, nontender, no masses noted. EXTREMITIES: Without significant edema, clubbing or cyanosis. LABORATORY DATA: White blood cell count 17,000, hemoglobin 9.5, hematocrit 27, platelet count 369. Sodium 129, potassium 3.6, chloride 97, bicarbonate 22, BUN 23, creatinine 1.2, glucose 109, magnesium 1.2. Troponin negative, albumin 1.6. Chest x-ray as described. IMPRESSION: 1. Diffuse pulmonary infiltrates, more centrally located, noted on x-ray, likely aspiration. Does not appear to be pulmonary edema, likely related to aspiration. Would suggest adding Zosyn and checking cultures further. 2. Acute hypoxemic respiratory failure. We will check followup arterial blood gas in continuous oximetry. May require transfer to the ICU if difficulty adequately oxygenating. Ventilation/perfusion scan does not suggest PE. The patient is also anticoagulated on apixaban and doubt PE is likely. 3. Irregular and tachycardic most consistent with atrial fibrillation. Currently, remains in tachycardic rhythm on exam and EKG done this morning did show some atrial fibrillation. 4. Leukocytosis. 5. Hypomagnesemia. 6. Recurrent urothelial cancer. [facility] [address] [place] [address] CONSULTATION Name: VISHAL ALMANZAR Room #: 202-P ADM IN M.R.#: [id number] Admission: 01/12/17 Attend Phys: Fam Oliveira DO Discharge: Date of : 38 Report #: [id number] SUGGESTIONS: 1. As above, continue with antimicrobial therapy. Doubt bronchodilator is of substantial benefit as there is no significant bronchospasm present. We will continue to decrease the frequency for now. Actually change the levalbuterol. Because of the tachycardia, consider Cardiology consultation. 2. Additional recommendations to follow. Thank you for requesting our suggestions. <ELECTRONICALLY SIGNED> By: Juan C Clancy MD 01/19/17 1807 1032 1927 Juan C Clancy MD /nt
--- NOTE | ~2017-01-12 | EKG ---
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
--- NOTE | ~2017-01-12 | EKG ---
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[employer]: adam : 1940 Requested By: Osman Dunbar Order Number: [id number] MD: Reginald Bhatti Measurements Intervals [place] Rate: 53 P: 26 [place]: 151 QRS: 9 QRSD: 89 T: 33 QT: 573 QTc: 539 Interpretive Statements Sinus rhythm Prolonged QT interval Baseline wander in lead(s) V1 Compared to ECG 01/13/2017 09:22:52 Atrial fibrillation no longer present QT interval has lengthened Electronically Signed On 01-18-2017 11:44:09 CDT by Reginald Bhatti [email or web address] <ELECTRONICALLY SIGNED> By: Reginald Bhatti MD, [facility] 01/18/17 1144 0939 0939 Reginald Bhatti MD, [facility] /EPI
--- NOTE | ~2017-01-12 | EKG ---
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 : 1940 Requested By: Ann Marie Sales Order Number: [id number] MD: Reginald Bhatti Measurements Intervals [place] Rate: 64 P: 11 [place]: 145 QRS: -5 QRSD: 93 T: -19 QT: 520 QTc: 537 Interpretive Statements Sinus rhythm Borderline T abnormalities, inferior leads Prolonged QT interval Compared to ECG 01/13/2017 09:22:52 no significant change was found Electronically Signed On 01-18-2017 11:56:41 CDT by Reginald Bhatti [email or web address] <ELECTRONICALLY SIGNED> By: Reginald Bhatti MD, [facility] 01/18/17 1156 08 1 Reginald Bhatti MD, [facility] /EPI
--- NOTE | ~2017-01-12 | HC ---
[facility] [place] [address] CONSULTATION Name: VISHAL ALMANZAR Room #: 236-P [facility] IN M.R.#: [id number] Admission: 01/12/17 Attend Phys: Fam Oliveira DO Discharge: Date of : 38 Report #: [id number] THIS REPORT FOR: //name// CC: Fam Jamesonmaxine Sahu DATE OF SERVICE: 01/14/2017 PRIMARY MEDICAL BILLER CODER: Atilio Rizzo M.D. [facility]. PRIMARY CARE PHYSICIAN: Fam Oliveira DO. CHIEF COMPLAINT: Weakness, fatigue, aspiration pneumonia. HISTORY OF PRESENT ILLNESS: We were asked to see this pleasant 76-year-old man who was admitted with respiratory insufficiency and presumed pneumonia. He was going into atrial fibrillation while on the telemetry monitored bed. This was paroxysmal and a known problem for this particular patient. His heart rates were fairly well controlled in the 130s to 150s and it has been paroxysmal. The patient has a known atrial fibrillation history and had been on sotalol therapy. He was recently discharged from this hospital with weakness, fatigue and chronic left hip pain. From a cardiovascular standpoint, historically, he has a history of coronary artery disease. Initial ECGs and troponin levels were unremarkable on presentation. His chest x-ray on initial presentation showed an atypical presentation with bilateral infiltrates and there was concern he had aspiration pneumonia. Overnight, the patient went into significant respiratory failure and now is presently in the ICU with BiPAP therapy and sats in the mid 90s and respiratory rate is in the mid 20s. The patient is a poor historian and most of his records were available from chart record only. PAST MEDICAL HISTORY: He has a history of ureteral cancer; prostatic cancer; coronary artery disease, status post multiple vessel PCI, followed by Dr. Rizzo in our practice; paroxysmal atrial fibrillation; diabetes and protein-calorie malnutrition. There is a cardiac catheterization report from 2012, demonstrating patent stents in the proximal and mid segments of the RCA, moderate disease in the mid LAD and wpuujnnk-mo-tmlhat stenosis in the apical LAD, which was recommended to manage medically and at that time, his ejection fraction was normal. FAMILY HISTORY: Positive for malignancy. SOCIAL HISTORY: He is a tobacco user. [facility] [address] [place] [address] CONSULTATION Name: VISHAL ALMANZAR Room #: 236-P [facility] IN ..#: [id number] Admission: 01/12/17 Attend Phys: Fam Oliveira DO Discharge: Date of : 38 Report #: [id number] ALLERGIES: He has no known drug allergies. MEDICATIONS: His home medications include the following: Atorvastatin, Cardizem 180 mg daily, sotalol 80 mg p.o. b.i.d., Eliquis 2.5 mg p.o. b.i.d., lisinopril 20 mg daily, insulin, chlorthalidone 25 mg daily and Lexapro 20 mg daily. REVIEW OF SYSTEMS: Obtained from chart records. GENERAL: No fevers or chills. NEUROLOGIC: No falls. No seizures. EYES: No loss of vision. THROAT: No dysphagia. CARDIOVASCULAR: No chest pain. Positive shortness of breath. No palpitations. SKIN: No rashes. MUSCULOSKELETAL: Positive weakness, positive hip pain. HEMATOLOGIC: Positive mild anemia. RENAL: No history of renal failure. PHYSICAL EXAMINATION: VITAL SIGNS: Presently, his blood pressure is 150/59 with a pulse of 66 and sinus rhythm and respiratory rate is 25 with O2 sat 95%. GENERAL: This is a cachectic elderly male. He is not able to answer questions appropriately. HEENT: Eyes, EOMs intact. There is no facial asymmetry. NECK: Supple. There is no jugular venous distention. CARDIOVASCULAR EXAMINATION: Regular. I cannot hear a murmur. Heart tones are distant. LUNGS: Coarse breath sounds bilaterally. ABDOMEN: Nontender, soft. EXTREMITIES: There is peripheral wasting. There is no peripheral edema. NEUROLOGIC: There are no focal deficits. LABORATORY DATA: Electrocardiogram shows a sinus rhythm on presentation with borderline LVH and nonspecific ST-segment changes. Cardiac troponin levels on presentation were normal at 0.08 and 0.06. His proBNP on January 12 was 6477. His creatinine is pending for this morning, on January 13, it was 1.2. His chest x-ray this morning demonstrates development of severe congestive heart failure and pulmonary edema. Echocardiogram is pending. V/Q scan on January 12, which showed [id number] probability for pulmonary embolism. IMPRESSION: 1. Acute respiratory failure. I suspect this is multifactorial with pneumonia and now appears to have congestive heart failure. We will place him on diuretics and assess left ventricular function. Historically, his LV function [address] [address] CONSULTATION Name: VISHAL ALMANZAR Room #: 236-P ADM IN M.R.#: [id number] Admission: 01/12/17 Attend Phys: Fam Oliveira DO Discharge: Date of : 38 Report #: [id number] has been normal. 2. Coronary artery disease. His initial cardiac troponin levels and ECGs were unremarkable. However, I will check another troponin level this morning. I would suggest a conservative approach given the patient's debility if evidence of an acute myocardial infarction is present. 3. Atrial fibrillation. At this point in time, we will continue with an IV Cardizem drip for rate control as the patient, because of his respiratory failure, is unable to take p.o. However, I would like to resume sotalol. 4. Debilitation. 5. Anemia. His last hemoglobin was 9.5. <ELECTRONICALLY SIGNED> By: Osman Dunbar MD, FACC 01/14/17 1336 0852 1221 Osman Dunbar MD, FACC /nt
[~2017-01-12 00:51] MED LIST changes: +ELIQUIS2.5 MG PO; +FERREX 150 PLU1 EAC1 PO; +FLOMAX0.4 MG PO; +HYDROCODONE-AP1 EAC6 PO; +LEXAPRO20 MG PO; +NOVOLOG100 UNIT/M SUBQ; +TRESIBA FL100 UNIT/1 SQ; +WELLBUTRIN XL300 MG PO
[2017-01-12 00:56] VITALS: BP 99/51
[2017-01-12 01:27] LABS: HEMATOCRIT 25.5 % (42.0-52.0); HEMOGLOBIN 8.7 gm/dL (14.0-18.0); MCH 32.3 pg (26.0-34.0); MCHC 34.1 g/dL (28.0-37.0); MCV 94.7 fL (80.0-100.0); PLATELET COUNT 361 thou/uL (150-400); RBC 2.69 mil/uL (4.50-6.00); RDW 14.4 % (10.5-14.5); WBC 13.9 thou/uL (4.0-11.0)
[2017-01-12 01:33] LABS: ABG SAMPLE TYPE ARTERIAL; BE(vivo) -0.5 mmol/L (-2 to +3); HCO3 22.6 mmol/L (22.0-26.0); LACTATE 1.21 mmol/L (0.5-2.0); O2Hb 93.2 % (92.0-98.0); PCO2 31.2 mmHg (35.0-45.0); PO2 74.4 mmHg (80.0-100.0); STICK SITE R.RADIAL; pH 7.478 (7.360-7.450); tCO2 23.6 mmol/L (24.0-30.0)
[2017-01-12 01:35] LABS: MANUAL DIFF YES
[2017-01-12 01:42] LABS: APTT 31.6 Seconds (24.5-32.8); INR 1.3; PROTIME 13.2 Seconds (9.3-11.4)
[2017-01-12 01:45] LABS: ALBUMIN 1.7 g/dL (3.4-5.0); CALCIUM 8.1 mg/dL (8.5-10.1); CK-MB MASS 0.5 ng/mL (<0.5-3.6); CREATININE 1.7 mg/dL (0.6-1.3); MAGNESIUM 1.4 mg/dL (1.8-2.4); POTASSIUM 3.1 mmol/L (3.5-5.1); TOTAL BILIRUBIN 0.5 mg/dL (<0.1-1.0); TOTAL PROTEIN 5.6 g/dL (6.4-8.2); TROPONIN-I 0.08 ng/mL (<0.04-0.07)
[2017-01-12 01:52] LABS: ABSOLUTE NEUTROPHILS 12.6 thou/uL (1.4-8.2); LARGE PLATELETS OCCASIONAL; TOTAL CELL COUNT 100
[2017-01-12 07:25] VITALS: BP 138/71
[2017-01-12 10:32] LABS: CALCIUM 8.2 mg/dL (8.5-10.1); CREATININE 1.5 mg/dL (0.7-1.3); POTASSIUM 3.4 mmol/L (3.5-5.1)
[2017-01-12 11:20] VITALS: BP 144/62
[2017-01-12 12:45] LABS: URINE BILIRUBIN NEGATIVE (Negative); URINE BLOOD 2+ (Negative); URINE COLOR YELLOW; URINE GLUCOSE-RANDOM* NEGATIVE (Negative); URINE KETONES NEGATIVE (Negative); URINE LEUKOCYTES-REFLEX 1+ (Negative); URINE PROTEIN (DIPSTICK) NEGATIVE (Negative); URINE UROBILINOGEN 0.2 E.U./dl (0.2-1.0)
[2017-01-12 12:51] LABS: CASTS None Seen /LPF (None Seen); CRYSTALS None Seen /LPF (None Seen); SQUAMOUS None Seen /LPF (0-3); URINE RBC 3-10 Few /HPF (0-2)
[2017-01-12 16:00] VITALS: BP 144/71
[2017-01-12 20:00] VITALS: BP 153/74
[2017-01-13 04:00] VITALS: BP 157/81
[2017-01-13 06:38] LABS: ALBUMIN 1.6 g/dL (3.4-5.0); CALCIUM 8.1 mg/dL (8.5-10.1); CREATININE 1.2 mg/dL (0.7-1.3); MAGNESIUM 1.2 mg/dL (1.8-2.4); POTASSIUM 3.6 mmol/L (3.5-5.1); TOTAL BILIRUBIN 0.7 mg/dL (<0.1-1.0); TOTAL PROTEIN 5.3 g/dL (6.4-8.2)
[2017-01-13 07:02] LABS: HEMATOCRIT 27.4 % (42.0-52.0); HEMOGLOBIN 9.5 gm/dL (14.0-18.0); MCHC 34.6 g/dL (28.0-37.0); MCV 95.3 fL (80.0-100.0); PLATELET COUNT 369 thou/uL (150-400); RBC 2.88 mil/uL (4.50-6.00); RDW 14.3 % (10.5-14.5); WBC 17.3 thou/uL (4.0-11.0)
[2017-01-13 07:03] LABS: MANUAL DIFF YES
[2017-01-13 08:31] LABS: ABSOLUTE NEUTROPHILS 15.9 thou/uL (1.4-8.2); PLATELET ESTIMATE NORMAL; TOTAL CELL COUNT 100
[2017-01-13 09:30] VITALS: BP 160/92
[2017-01-13 10:12] LABS: PHOSPHORUS 3.1 mg/dL (2.5-4.9); TROPONIN-I 0.06 ng/mL (<0.04-0.07)
[2017-01-13 10:49] LABS: ABG SAMPLE TYPE ARTERIAL; BE(vivo) -0.3 mmol/L (-2 to +3); LACTATE 1.46 mmol/L (0.5-2.0); O2Hb 95.9 % (92.0-98.0); PCO2 32.6 mmHg (35.0-45.0); PO2 89.7 mmHg (80.0-100.0); STICK SITE L.RADIAL; pH 7.466 (7.360-7.450); sO2 97.4 % (92.0-98.0)
[2017-01-13 10:50] LABS: Face Shield 50 %
[2017-01-13 12:15] VITALS: BP 158/86
[2017-01-13 17:00] VITALS: BP 156/79
[2017-01-13 19:40] VITALS: BP 154/81
[2017-01-14] VITALS (22 sets, daily range): BP systolic 115–174; BP diastolic 51–108
[2017-01-14 01:26] LABS: ABG SAMPLE TYPE ARTERIAL; BE(vivo) -1.1 mmol/L (-2 to +3); HCO3 22.5 mmol/L (22.0-26.0); LACTATE 1.17 mmol/L (0.5-2.0); O2(CT) 13.4 mL/dL (15.0-23.0); O2Hb 88.3 % (92.0-98.0); PCO2 33.7 mmHg (35.0-45.0); PO2 59.9 mmHg (80.0-100.0); pH 7.443 (7.360-7.450); sO2 92.2 % (92.0-98.0); tCO2 23.6 mmol/L (24.0-30.0)
[2017-01-14 01:27] LABS: STICK SITE R.BRACHIAL
[2017-01-14 03:41] LABS: ABG SAMPLE TYPE ARTERIAL; BE(vivo) -0.6 mmol/L (-2 to +3); HCO3 23.9 mmol/L (22.0-26.0); LACTATE 1.35 mmol/L (0.5-2.0); O2(CT) 14.7 mL/dL (15.0-23.0); O2Hb 97.9 % (92.0-98.0); PCO2 38.5 mmHg (35.0-45.0); PO2 146.8 mmHg (80.0-100.0); STICK SITE R.BRACHIAL; sO2 98.9 % (92.0-98.0)
[2017-01-14 03:42] LABS: Pressure Support 8 cm H20; TIDAL VOLUME 645 ml
[2017-01-14 09:59] LABS: CALCIUM 8.8 mg/dL (8.5-10.1); CREATININE 1.3 mg/dL (0.7-1.3); MAGNESIUM 1.6 mg/dL (1.8-2.4); POTASSIUM 3.9 mmol/L (3.5-5.1); TROPONIN-I 0.04 ng/mL (<0.04-0.07)
[2017-01-15] VITALS (24 sets, daily range): BP systolic 127–151; BP diastolic 48–108
[2017-01-15 03:56] LABS: ABG SAMPLE TYPE ARTERIAL; BE(vivo) 2.8 mmol/L (-2 to +3); HCO3 25.9 mmol/L (22.0-26.0); LACTATE 1.31 mmol/L (0.5-2.0); O2(CT) 13.3 mL/dL (15.0-23.0); O2Hb 90.9 % (92.0-98.0); PCO2 34.5 mmHg (35.0-45.0); PO2 61.7 mmHg (80.0-100.0); Pressure Support 8 cm H20; STICK SITE L.RADIAL; TIDAL VOLUME 750 ml; pH 7.494 (7.360-7.450); sO2 93.6 % (92.0-98.0)
[2017-01-15 06:09] LABS: HEMATOCRIT 28.3 % (42.0-52.0); HEMOGLOBIN 9.7 gm/dL (14.0-18.0); MCH 32.4 pg (26.0-34.0); MCHC 34.1 g/dL (28.0-37.0); RBC 2.98 mil/uL (4.50-6.00); RDW 14.5 % (10.5-14.5); WBC 25.5 thou/uL (4.0-11.0)
[2017-01-15 06:15] LABS: CALCIUM 8.5 mg/dL (8.5-10.1); CREATININE 1.4 mg/dL (0.7-1.3); MAGNESIUM 1.3 mg/dL (1.8-2.4)
[2017-01-15 16:49] LABS: MAGNESIUM 1.8 mg/dL (1.8-2.4)
[2017-01-15 16:52] LABS: POTASSIUM 2.8 mmol/L (3.5-5.1)
[2017-01-15 21:09] LABS: INFLUENZA B Negative (Negative); METAPNEUMOVIRUS Negative (Negative)
[2017-01-16] VITALS (25 sets, daily range): BP systolic 113–166; BP diastolic 53–102
[2017-01-16 06:01] LABS: CALCIUM 8.3 mg/dL (8.5-10.1); CREATININE 1.8 mg/dL (0.7-1.3); POTASSIUM 3.9 mmol/L (3.5-5.1)
[2017-01-16 06:14] LABS: HEMATOCRIT 26.2 % (42.0-52.0); HEMOGLOBIN 8.9 gm/dL (14.0-18.0); MCH 32.2 pg (26.0-34.0); MCHC 34.1 g/dL (28.0-37.0); MCV 94.5 fL (80.0-100.0); RBC 2.78 mil/uL (4.50-6.00); RDW 14.4 % (10.5-14.5); WBC 26.4 thou/uL (4.0-11.0)
[2017-01-17] VITALS (34 sets, daily range): BP systolic 136–171; BP diastolic 46–131
[2017-01-17 03:48] LABS: HEMATOCRIT 26.4 % (42.0-52.0); MCH 32.5 pg (26.0-34.0); MCHC 34.3 g/dL (28.0-37.0); MCV 94.7 fL (80.0-100.0); PLATELET COUNT 239 thou/uL (150-400); RBC 2.79 mil/uL (4.50-6.00); RDW 14.4 % (10.5-14.5); WBC 25.5 thou/uL (4.0-11.0)
[2017-01-17 04:04] LABS: CALCIUM 8.4 mg/dL (8.5-10.1); CREATININE 1.8 mg/dL (0.7-1.3); POTASSIUM 3.4 mmol/L (3.5-5.1)
[2017-01-17 04:06] LABS: MANUAL DIFF YES
[2017-01-17 08:05] LABS: ABG SAMPLE TYPE ARTERIAL; BE(vivo) 6.4 mmol/L (-2 to +3); HCO3 30.2 mmol/L (22.0-26.0); LACTATE 1.34 mmol/L (0.5-2.0); O2(CT) 13.4 mL/dL (15.0-23.0); O2Hb 91.3 % (92.0-98.0); PCO2 40.5 mmHg (35.0-45.0); PO2 65.7 mmHg (80.0-100.0); STICK SITE R.RADIAL; pH 7.491 (7.360-7.450); sO2 94.4 % (92.0-98.0); tCO2 31.5 mmol/L (24.0-30.0)
[2017-01-17 08:11] LABS: ABSOLUTE NEUTROPHILS 24.7 thou/uL (1.4-8.2); TOTAL CELL COUNT 100
[2017-01-18] VITALS (25 sets, daily range): BP systolic 132–178; BP diastolic 48–91
[2017-01-18 04:45] LABS: HEMATOCRIT 27.7 % (42.0-52.0); HEMOGLOBIN 9.4 gm/dL (14.0-18.0); MCH 32.2 pg (26.0-34.0); MCHC 34.1 g/dL (28.0-37.0); MCV 94.5 fL (80.0-100.0); PLATELET COUNT 185 thou/uL (150-400); RBC 2.93 mil/uL (4.50-6.00); RDW 14.6 % (10.5-14.5)
[2017-01-18 04:58] LABS: MANUAL DIFF YES
[2017-01-18 05:04] LABS: CALCIUM 8.4 mg/dL (8.5-10.1); CREATININE 1.5 mg/dL (0.7-1.3); POTASSIUM 3.6 mmol/L (3.5-5.1)
[2017-01-18 06:59] LABS: ABSOLUTE NEUTROPHILS 25.9 thou/uL (1.4-8.2); ANISOCYTOSIS 1+; TOTAL CELL COUNT 100
[2017-01-19] VITALS (18 sets, daily range): BP systolic 128–172; BP diastolic 48–72
[2017-01-19 02:10] LABS: HEMATOCRIT 24.7 % (42.0-52.0); HEMOGLOBIN 8.3 gm/dL (14.0-18.0); MCH 32.1 pg (26.0-34.0); MCHC 33.5 g/dL (28.0-37.0); MCV 95.7 fL (80.0-100.0); PLATELET COUNT 138 thou/uL (150-400); RBC 2.58 mil/uL (4.50-6.00); RDW 14.5 % (10.5-14.5)
[2017-01-19 02:12] LABS: MANUAL DIFF YES
[2017-01-19 02:24] LABS: ALBUMIN 1.5 g/dL (3.4-5.0); CALCIUM 7.6 mg/dL (8.5-10.1); CREATININE 1.4 mg/dL (0.7-1.3); TOTAL BILIRUBIN 0.6 mg/dL (<0.1-1.0); TOTAL PROTEIN 4.6 g/dL (6.4-8.2)
[2017-01-19 02:50] LABS: POTASSIUM 3.8 mmol/L (3.5-5.1)
[2017-01-19 05:01] LABS: ABSOLUTE NEUTROPHILS 22.8 thou/uL (1.4-8.2); TOTAL CELL COUNT 100
[2017-01-20 03:02] VITALS: BP 154/68
[2017-01-20 04:26] LABS: HEMATOCRIT 25.7 % (42.0-52.0); HEMOGLOBIN 8.7 gm/dL (14.0-18.0); MCH 32.1 pg (26.0-34.0); MCHC 33.7 g/dL (28.0-37.0); MCV 95.4 fL (80.0-100.0); PLATELET COUNT 143 thou/uL (150-400); RDW 14.6 % (10.5-14.5); WBC 24.4 thou/uL (4.0-11.0)
[2017-01-20 04:31] LABS: MANUAL DIFF YES
[2017-01-20 04:34] LABS: CREATININE 1.5 mg/dL (0.7-1.3); POTASSIUM 3.9 mmol/L (3.5-5.1)
[2017-01-20 06:55] LABS: ABSOLUTE NEUTROPHILS 23.9 thou/uL (1.4-8.2); TOTAL CELL COUNT 100
[2017-01-20 08:10] VITALS: BP 166/71
[2017-01-20 11:49] VITALS: BP 149/67
[2017-01-20 15:11] VITALS: BP 71/78
[2017-01-20 19:46] VITALS: BP 159/65
[2017-01-21 03:29] VITALS: BP 176/79
[2017-01-21 06:58] VITALS: BP 157/65
[2017-01-21 10:48] LABS: URINE BILIRUBIN NEGATIVE (Negative); URINE BLOOD 2+ (Negative); URINE COLOR YELLOW; URINE GLUCOSE-RANDOM* TRACE (Negative); URINE KETONES NEGATIVE (Negative); URINE LEUKOCYTES-REFLEX TRACE (Negative); URINE PROTEIN (DIPSTICK) TRACE (Negative); URINE SPECIFIC GRAVITY 1.015 (1.003-1.035); URINE UROBILINOGEN 0.2 E.U./dl (0.2-1.0)
[2017-01-21 11:17] LABS: CASTS None Seen /LPF (None Seen); CRYSTALS None Seen /LPF (None Seen); SQUAMOUS 0-3 Few /LPF (0-3); URINE RBC >20 Many /HPF (0-2); URINE WBC-REFLEX 6-15 Few /HPF (0-5)
[2017-01-21 15:44] VITALS: BP 159/70
[2017-01-21 20:25] VITALS: BP 164/81
[2017-01-22 03:25] VITALS: BP 168/86
[2017-01-22 07:05] VITALS: BP 136/81
[2017-01-22 11:10] VITALS: BP 148/70
[2017-01-22 12:09] LABS: HEMATOCRIT 29.3 % (42.0-52.0); MCH 32.9 pg (26.0-34.0); MCHC 34.1 g/dL (28.0-37.0); MCV 96.3 fL (80.0-100.0); PLATELET COUNT 169 thou/uL (150-400); RBC 3.04 mil/uL (4.50-6.00); WBC 23.8 thou/uL (4.0-11.0)
[2017-01-22 12:11] LABS: MANUAL DIFF YES
[2017-01-22 13:00] LABS: ABSOLUTE NEUTROPHILS 21.9 thou/uL (1.4-8.2); TOTAL CELL COUNT 100
[2017-01-22 13:02] LABS: ANISOCYTOSIS 1+
[2017-01-22] MEDS ORDERED: PROTONIX40 M1 PO (13:36)
[2017-01-22] MEDS ORDERED: PREDNISONE 10 M10 M1 PO (13:36)
[2017-01-22] MEDS ORDERED: LANTUSSOLASTAR SUBQ (13:36)
[2017-01-22] MEDS ORDERED: HUMALOG100 UNIT/1 SUBQ (13:36)
[2017-01-22] MEDS ORDERED: SORINE 80 MG TA80 M1 PO (13:36)
[2017-01-22] MEDS ORDERED: AUGMENTIN 500-1 EACH PO (13:36)
[2017-01-22] MEDS ORDERED: LISINOPRIL5 MG PO (13:36)
[2017-01-22] MEDS ORDERED: LEVALBUTER1.25 MG/0. INH (13:36)
[2017-01-22] MEDS ORDERED: LASIX 20 MG TAB20 MG PO (13:36)
== END 2017-01-22 16:35 | DRG 177 ==
LOC: ER 00:51 → EROBS 02:39 → 3N 02:39 → 2N 02:39 → 3N 04:01 → ICU 01-14 02:12 → 2N 01-19 16:08
PROVIDERS: Emergency Medicine; Family Medicine; Hospitalist; Internal Medicine; Internal Medicine Endocrinology, Diabetes & Metabolism; Internal Medicine Pulmonary Disease; Nurse Practitioner; Nurse Practitioner Acute Care
PROC: 5A09357 Assistance with Respiratory Ventilation, Less than 24 Consecutive Hours, Continuous Positive Airway Pressure (ICD-10-PCS; principal; 2017-01-14)
PROC: 02HV33Z Insertion of Infusion Device into Superior Vena Cava, Percutaneous Approach (ICD-10-PCS; 2017-01-15)
PROC: B548ZZA Ultrasonography of Superior Vena Cava, Guidance (ICD-10-PCS; 2017-01-15)
DX: J69.0 Pneumonitis due to inhalation of food and vomit (principal); G93.41 Metabolic encephalopathy; E43 Unspecified severe protein-calorie malnutrition; J96.01 Acute respiratory failure with hypoxia; I50.31 Acute diastolic (congestive) heart failure; N39.0 Urinary tract infection, site not specified; N17.9 Acute kidney failure, unspecified; E87.1 Hypo-osmolality and hyponatremia; I13.0 Hypertensive heart and chronic kidney disease with heart failure and stage 1 through stage 4 chronic kidney disease, or unspecified chronic kidney disease; E87.6 Hypokalemia; E83.42 Hypomagnesemia; F17.210 Nicotine dependence, cigarettes, uncomplicated; D64.9 Anemia, unspecified; R19.00 Intra-abdominal and pelvic swelling, mass and lump, unspecified site; R33.9 Retention of urine, unspecified; N40.0 Benign prostatic hyperplasia without lower urinary tract symptoms; I25.10 Atherosclerotic heart disease of native coronary artery without angina pectoris; D72.829 Elevated white blood cell count, unspecified; E11.649 Type 2 diabetes mellitus with hypoglycemia without coma; R26.81 Unsteadiness on feet; I95.9 Hypotension, unspecified; I48.0 Paroxysmal atrial fibrillation; N18.9 Chronic kidney disease, unspecified; E78.5 Hyperlipidemia, unspecified; Z66 Do not resuscitate; Z51.5 Encounter for palliative care; E11.22 Type 2 diabetes mellitus with diabetic chronic kidney disease; Z68.25 Body mass index [BMI] 25.0-25.9, adult; Z85.54 Personal history of malignant neoplasm of ureter; Z80.42 Family history of malignant neoplasm of prostate; Z95.5 Presence of coronary angioplasty implant and graft; Z85.46 Personal history of malignant neoplasm of prostate; Z90.5 Acquired absence of kidney; Z79.899 Other long term (current) drug therapy
CPT/HCPCS: 10078; 10081; 10096; 27000